=== PATIENT | female | born 1995 | race African-American/Black ===

== ENCOUNTER → 2019-08-02 15:20 | Emergency (ER) | payer MEDICAID ==
[~2019-08-02] VITALS: Ht 165.1 cm; Wt 74.8 kg
[~2019-08-02 15:20] MED LIST: PROMETHAZINE HCL 25 MG/ML 1ML IV PRN; SODIUM CHLORIDE 0.9% 1,000 ML IV ONE; SODIUM CHLORIDE 0.9% 1,000 ML IVB ONE
[2019-08-02 16:17] LABS: Urine Bacteria NONE SEEN /hpf (None Seen); Urine Blood 2+ /uL (Negative); Urine Mucus FEW (None Seen); Urine Specific Gravity 1.032 (1.001-1.035); Urine WBC 4 /hpf (0 - 5)
[2019-08-02 16:18] LABS: Basophils # (auto) 0.1 uL; Eosinophils # (auto) 0 uL; Eosinophils % (auto) 0.5 % (0.0-7.0); Hematocrit 41.4 % (36.0-46.0); Hemoglobin 14.4 g/dL (12.2-16.2); Lymphocytes # (auto) 1.2 uL; Lymphocytes % (auto) 23.9 % (10.0-50.0); Mean Corpuscular Hemoglobin 32.6 pg (28.0-32.0); Mean Corpuscular Hgb Conc. 34.7 g/dL (32.0-36.0); Mean Corpuscular Volume 94.2 fL (80.0-100.0); Monocytes # (auto) 0.5 uL; Monocytes % (auto) 9.6 % (0.0-12.0); Neutrophils # (auto) 3.4 uL; Nucleated Red Blood Cells % 0.1 %; Platelet Count (auto) 250 10^3/uL (140-450); Red Cell Distribution Width 13.4 % (11.8-14.3); White Blood Cell 5.2 10^3/uL (4.4-10.8)
[2019-08-02 16:35] LABS: Albumin 3.9 g/dL (3.4-5.0); BUN/Creatinine Ratio 17.5; Bilirubin, Total 1.5 mg/dL (0.2-1.0); Calcium 9.2 mg/dL (8.5-10.1); Potassium 3.6 mmol/L (3.5-5.1); Total Protein 8.7 g/dL (6.4-8.2)
[2019-08-02 21:20] VITALS: BP 118/80
== END | disposition home or self-care (01) ==
LOC: ER 15:20
DX: O21.8 Other vomiting complicating pregnancy (principal); Z3A.01 Less than 8 weeks gestation of pregnancy
CPT/HCPCS: 36415; 76801; 80053; 81001; 82962; 84702; 85025; 94761; 96360; 99284; J7030

== ENCOUNTER 2020-03-12 03:00 | Observation (INO) | payer MEDICAID ==
[~2020-03-12] VITALS: Ht 165.1 cm; Wt 103.0 kg
== END 2020-03-12 04:10 | disposition home or self-care (01) | DRG 566 ==
LOC: LDRP 03:00
PROVIDERS: ADMIT Obstetrics & Gynecology; ATTEND Obstetrics & Gynecology
DX: O62.9 Abnormality of forces of labor, unspecified (principal); Z3A.39 39 weeks gestation of pregnancy
CPT/HCPCS: 59025; 81002; G0378

== ENCOUNTER 2021-10-10 16:19 | Emergency (ER) | payer MEDICAID ==
[~2021-10-10] VITALS: Ht 165.1 cm; Wt 102.1 kg
[2021-10-10 18:04] LABS: Urine Bacteria NONE SEEN /hpf (None Seen); Urine Blood 1+ /uL (Negative); Urine Mucus FEW (None Seen); Urine Specific Gravity 1.024 (1.001-1.035); Urine WBC 1 /hpf (0 - 5)
[2021-10-10 19:20] LABS: Basophils # (auto) 0 10 ^3/uL (0-0.2); Eosinophils # (auto) 0 10 ^3/uL (0-0.8); Hemoglobin 13.3 g/dL (12.2-16.2); Lymphocytes # (auto) 1.1 10 ^3/uL (0.4-5.4); Neutrophils # (auto) 0.9 10 ^3/uL (1.6-8.6); Nucleated Red Blood Cells % 0.1 %; Red Cell Distribution Width 13.6 % (11.8-14.3); White Blood Cell 2.4 10^3/uL (4.4-10.8)
[2021-10-10 19:23] LABS: Basophils % (auto) 0.7 % (0.0-2.0); Lymphocytes % (auto) 47.2 % (10.0-50.0); Mean Corpuscular Hemoglobin 31.2 pg (28.0-32.0); Mean Corpuscular Hgb Conc. 34.1 g/dL (32.0-36.0); Mean Corpuscular Volume 91.3 fL (80.0-100.0); Monocytes # (auto) 0.3 10 ^3/uL (0-1.3); Monocytes % (auto) 12.8 % (0.0-12.0); Neutrophils % (auto) 38.3 % (37.0-80.0); Red Blood Cells 4.27 10^6/uL (4.0-5.20)
[2021-10-10 19:26] LABS: Albumin 3.7 g/dL (3.4-5.0); Calcium 8.5 mg/dL (8.5-10.1); Potassium 3.6 mmol/L (3.5-5.1)
[2021-10-10 19:41] LABS: BUN/Creatinine Ratio 8.5; Bilirubin, Total 0.4 mg/dL (0.2-1.0); Total Protein 8.1 g/dL (6.4-8.2)
[2021-10-10 23:59] VITALS: BP 148/104
== END 2021-10-11 00:02 | disposition home or self-care (01) ==
LOC: ER 16:19
DX: R07.89 Other chest pain (principal); F12.10 Cannabis abuse, uncomplicated
CPT/HCPCS: 36415; 71045; 80053; 81001; 83735; 84484; 85025; 93005

== ENCOUNTER 2023-08-13 06:50 | Inpatient (IN) | payer MEDICAID ==
[~2023-08-13] VITALS: Ht 160 cm; Wt 101.4 kg
[2023-08-13] MEDS ORDERED: ASPirin 81 mg TAB PO ONE (07:00)
[2023-08-13 07:28] VITALS: PULSE 98; RESP 16; O2SAT 98
[2023-08-13] MEDS: LORazepam 2MG/ML-1ML VIAL IV ONE ×2 (07:33→08:39)
[2023-08-13 07:34] LABS: Basophils # (auto) 0 10 ^3/uL (0-0.2); Basophils % (auto) 0.7 % (0.0-2.0); Eosinophils # (auto) 0 10 ^3/uL (0-0.8); Eosinophils % (auto) 0.5 % (0.0-7.0); Hematocrit 38.3 % (36.0-46.0); Hemoglobin 13.1 g/dL (12.2-16.2); Lymphocytes % (auto) 43.4 % (10.0-50.0); Mean Corpuscular Hemoglobin 31.8 pg (28.0-32.0); Mean Corpuscular Hgb Conc. 34.1 g/dL (32.0-36.0); Mean Corpuscular Volume 93.3 fL (80.0-100.0); Monocytes # (auto) 0.4 10 ^3/uL (0-1.3); Neutrophils # (auto) 2.2 10 ^3/uL (1.6-8.6); Neutrophils % (auto) 47.4 % (37.0-80.0); Nucleated Red Blood Cells % 0.2 %; Red Blood Cells 4.11 10^6/uL (4.0-5.20); Red Cell Distribution Width 14.8 % (11.8-14.3); White Blood Cell 4.7 10^3/uL (4.4-10.8)
[2023-08-13 07:57] LABS: Alanine Aminotransferase 20 U/L (7-40); Albumin 4.2 g/dL (3.2-4.8); Alkaline Phosphatase 59 U/L (46-116); Anion Gap 8 (5-15); Aspartate Aminotransferase 21 U/L (13-40); BUN/Creatinine Ratio 15.4 (10.0-20.0); Bilirubin, Total 0.8 mg/dL (0.2-1.0); Blood Urea Nitrogen 12 mg/dL (9-23); Calcium 8.8 mg/dL (8.5-10.1); Carbon Dioxide 23 mmol/L (20-30); Chloride 110 mmol/L (98-107); Glucose 92 mg/dL (74-106); Potassium 4.3 mmol/L (3.5-5.1); Sodium 141 mmol/L (136-145); Total Protein 6.9 g/dL (5.7-8.2)
[2023-08-13] MEDS ORDERED: ENOXAPARIN SOD 100 MG/1 ML SYRINGE SC ONE (08:45)
[2023-08-13 09:08] LABS: Amphetamine Screen, Urine Neg (NEGATIVE)
[2023-08-13 09:09] LABS: Barbiturate Scree,Urine Neg (NEGATIVE); Benzodiazephine Screen, Urine Neg (NEGATIVE); Cocaine Screen, Urine Neg (NEGATIVE)
[2023-08-13 09:10] LABS: Cannabinoid Screen, Urine Neg (NEGATIVE); Opiate Scree,Urine Neg (NEGATIVE); Phencyclidine Screen, Urine Neg (NEGATIVE); Urine Bacteria NONE SEEN /hpf (None Seen); Urine Blood 2+ /uL (Negative); Urine Clarity HAZY (Clear); Urine Color Colorless (Yellow); Urine Mucus FEW (None Seen); Urine Protein, UAD Negative (Negative); Urine Urobilinogen Normal (Negative); Urine WBC 3 /hpf (0 - 5); Urine pH 6.5 (5.0-8.0)
[2023-08-13] MEDS ORDERED: ACETAMINOPHEN 325 MG TAB PO PRN (09:30)
[2023-08-13] MEDS ORDERED: MORPHINE SULFATE 4 MG/ML SYR/VIAL IV PRN (09:30)
[2023-08-13] MEDS ORDERED: NITROGLYCERIN 0.4 MG SL TAB SL PRN (09:30)
[2023-08-13] MEDS ORDERED: ONDANSETRON HCL 4 MG/2 ML VIAL IV PRN (09:30)
[2023-08-13] MEDS: SODIUM CHLORIDE 0.9% 1,000 ML IV SCH ×2 (09:43→19:30)
[2023-08-13] MEDS: DOCUSATE SOD 100 MG CAP PO SCH (09:51)
[2023-08-13] MEDS ORDERED: LORazepam 2MG/ML-1ML VIAL IV PRN (10:00)
[2023-08-13] MEDS ORDERED: METOPROLOL TARTRATE 25 MG TAB PO SCH (10:00)
[2023-08-13 10:40] LABS: LDL Cholesterol 83 mg/dL (< 100); Triglycerides 112 mg/dL (< 150)
[2023-08-13 10:42] LABS: Cholesterol 175 mg/dL (< 200); HDL Cholesterol 76 mg/dL (40-59)
[2023-08-13 10:57] LABS: Blood Alcohol < 3.0 mg/dL (<10)
[2023-08-13 10:59] LABS: Phosphorus 3.1 mg/dL (2.4-5.1)
[2023-08-13 11:03] LABS: Free T3 3.33 pg/mL (2.3-4.2); Free T4 (Free Thyroxine) 1.09 ng/dL (0.89-1.76)
[2023-08-13 11:36] LABS: Amphetamine Screen, Urine Neg (NEGATIVE)
[2023-08-13 11:37] LABS: Barbiturate Scree,Urine Neg (NEGATIVE); Benzodiazephine Screen, Urine Neg (NEGATIVE); Cannabinoid Screen, Urine Neg (NEGATIVE); Cocaine Screen, Urine Neg (NEGATIVE); Opiate Scree,Urine Neg (NEGATIVE); Phencyclidine Screen, Urine Neg (NEGATIVE)
[2023-08-13] MEDS ORDERED: FOLIC ACID 1 MG, MULTIPLE VITAMIN 10 ML, MAGNESIUM SULF SDV 50% 8 MEQ, THIAMINE INJ 100... INJ SCH ×5 (12:00)
[2023-08-13 23:52] VITALS: PULSE 91; RESP 14; O2SAT 99
[2023-08-14] MEDS: SODIUM CHLORIDE 0.9% 1,000 ML IV SCH ×2 (05:30→15:30)
[2023-08-14 05:59] LABS: Alanine Aminotransferase 19 U/L (7-40); Alkaline Phosphatase 61 U/L (46-116); Anion Gap 8 (5-15); Aspartate Aminotransferase 20 U/L (13-40); BUN/Creatinine Ratio 13.5 (10.0-20.0); Basophils # (auto) 0 10 ^3/uL (0-0.2); Basophils % (auto) 0.4 % (0.0-2.0); Blood Urea Nitrogen 10 mg/dL (9-23); Calcium 8.5 mg/dL (8.7-10.4); Carbon Dioxide 22 mmol/L (20-30); Chloride 105 mmol/L (98-107); Eosinophils # (auto) 0 10 ^3/uL (0-0.8); Eosinophils % (auto) 1.3 % (0.0-7.0); Glucose 85 mg/dL (74-106); Hemoglobin 12.1 g/dL (12.2-16.2); Lymphocytes # (auto) 1.6 10 ^3/uL (0.4-5.4); Lymphocytes % (auto) 42.4 % (10.0-50.0); Mean Corpuscular Hemoglobin 32.3 pg (28.0-32.0); Mean Corpuscular Hgb Conc. 34.6 g/dL (32.0-36.0); Mean Corpuscular Volume 93.5 fL (80.0-100.0); Monocytes # (auto) 0.4 10 ^3/uL (0-1.3); Monocytes % (auto) 10.1 % (0.0-12.0); Neutrophils # (auto) 1.7 10 ^3/uL (1.6-8.6); Neutrophils % (auto) 45.8 % (37.0-80.0); Nucleated Red Blood Cells % 0.2 %; Potassium 3.9 mmol/L (3.5-5.1); Red Blood Cells 3.74 10^6/uL (4.0-5.20); Red Cell Distribution Width 14.6 % (11.8-14.3); Total Protein 6.9 g/dL (5.7-8.2); White Blood Cell 3.8 10^3/uL (4.4-10.8)
[2023-08-14 06:39] LABS: Sodium 135 mmol/L (136-145)
[2023-08-14 08:00] VITALS: PULSE 82; RESP 15; O2SAT 99
[2023-08-14] MEDS: ASPirin 81 mg TAB PO SCH (09:30)
[2023-08-14] MEDS: DOCUSATE SOD 100 MG CAP PO SCH (10:00)
[2023-08-14] MEDS ORDERED: dilTIAZem HCL 180MG ER CAP PO SCH (10:00)
[2023-08-14 13:00] VITALS: BP 116/73; PULSE 81; RESP 18; TEMP 98.2; O2SAT 98
[2023-08-14 15:05] VITALS: RESP 18; O2SAT 95
[2023-08-14 20:00] VITALS: PULSE 85
[2023-08-14 21:11] VITALS: BP 110/77; PULSE 65; RESP 20; TEMP 98.1; O2SAT 100
[2023-08-15] MEDS: SODIUM CHLORIDE 0.9% 1,000 ML IV SCH ×2 (01:30→11:30)
[2023-08-15 05:45] VITALS: BP 119/78; PULSE 72; RESP 18; TEMP 98.5; O2SAT 100
[2023-08-15 07:48] VITALS: RESP 18
[2023-08-15 08:00] VITALS: PULSE 73
[2023-08-15 09:00] VITALS: BP 110/73; PULSE 73; RESP 19; TEMP 98.5; O2SAT 100
[2023-08-15 09:27] LABS: Chloride 106 mmol/L (98-107); Sodium 135 mmol/L (136-145)
[2023-08-15 09:28] LABS: Anion Gap 5 (5-15); Carbon Dioxide 24 mmol/L (20-30)
[2023-08-15 09:29] LABS: Calcium 8.6 mg/dL (8.7-10.4)
[2023-08-15 09:33] LABS: BUN/Creatinine Ratio 11.5 (10.0-20.0); Blood Urea Nitrogen 9 mg/dL (9-23); Glucose 95 mg/dL (74-106)
[2023-08-15 09:34] LABS: Magnesium 1.9 mg/dL (1.6-2.6)
[2023-08-15] MEDS: ASPirin 81 mg TAB PO SCH (09:55)
[2023-08-15] MEDS ORDERED: THIAMINE 100mg/ml INJ (200mg/2ml VIAL) IV SCH (10:00)
[2023-08-15] MEDS ORDERED: dilTIAZem HCL 180MG ER CAP PO SCH (10:00)
[2023-08-15] MEDS: DOCUSATE SOD 100 MG CAP PO SCH (10:00)
[2023-08-15] MEDS ORDERED: FOLIC ACID 1 MG TAB PO SCH (10:00)
[2023-08-15] MEDS ORDERED: DILT-29 PO (10:56)
[2023-08-15 13:00] VITALS: BP 123/82; PULSE 80; RESP 18; TEMP 98; O2SAT 96
[2023-08-15 14:34] VITALS: BP 110/73; PULSE 73; TEMP 36.9
== END 2023-08-15 17:30 | disposition home or self-care (01) | DRG 201 ==
LOC: EDBD 06:50 → ER 06:50 → TELE 09:26 → TELE-WESTW 08-14 12:19
PROVIDERS: ADMIT Nurse Practitioner Family; ATTEND Internal Medicine
DX: I47.10 Supraventricular tachycardia, unspecified (principal); I21.A1 Myocardial infarction type 2; F41.9 Anxiety disorder, unspecified; F10.10 Alcohol abuse, uncomplicated; E66.01 Morbid (severe) obesity due to excess calories; Y90.9 Presence of alcohol in blood, level not specified; F32.A Depression, unspecified; Z82.49 Family history of ischemic heart disease and other diseases of the circulatory system; Z68.39 Body mass index [BMI] 39.0-39.9, adult
CPT/HCPCS: 36415; 71045; 80048; 80053; 80061; 80307; 80320; 81001; 81025; 82607; 83036; 83735; 83880; 84100; 84439; 84443; 84481; 84484; 85025; 85379; 93005; 93306; 96374; 99291; G0378

== ENCOUNTER 2025-08-26 05:51 | Emergency (ER) | payer MEDICAID ==
[~2025-08-26] VITALS: Ht 160 cm; Wt 101.4 kg
[~2025-08-26 05:51] MED LIST changes: +DILT-29 PO; -PROMETHAZINE HCL 25 MG/ML 1ML IV PRN; -SODIUM CHLORIDE 0.9% 1,000 ML IV ONE; -SODIUM CHLORIDE 0.9% 1,000 ML IVB ONE
--- NOTE | 2025-08-26 06:13 | ECG ---
[facility] Test Date: 2025-08-26 Test Time: 06:08:11 Pat Name: RAIMUNDO DOLAN Department: [facility] ED Patient ID: [id number] Room: Gender: F Vitamin Manager: LAURA : 1995 Requested By: REGULO MICHEL Order Number: [id number] Reading MD: Salvatore English Measurements Intervals [place] Rate: 89 P: 88 [place]: 180 QRS: 59 QRSD: 84 T: 21 QT: 355 QTc: 432 Interpretive Statements Sinus rhythm Electronically Signed On 08-31-2025 14:48:07 PST by Salvatore English Please click the below link to view image of tracing.
--- NOTE | 2025-08-26 06:36 | ED.PDOC ---
GI ASSESSMENT HPI Comments 30-year-old female with a medical history of SVT, who presents to the ED for chief complaint of epigastric pain this started at 1:30 a.m. today. Patient reports that pain is constant, nonradiating, in his associated with bloating, nausea, vomiting, and shortness a breath. Patient reports that symptoms worsened when laying flat. She denies any recent stressors at home or at work, fever, chills, diarrhea, recent illness exposure. Chief Complaint: Abdominal Pain Time Seen by MD: 06:16 Primary Care Provider: ANALY Reviewed Notes: Nurses Notes, Medications, Allergies Allergies: Coded Allergies: NO KNOWN ALLERGIES (Unverified , 08/02/19) Home Meds Active Scripts Nitrofurantoin Monohydrate Mac (Macrobid) 100 Mg Cap, 100 MG PO BID for 5 Days, #10 CAP Prov:GARRETT ALANIS MD 08/26/25 Diltiazem Hcl (DILTIAZEM HCL ER) 240 Mg Cap, 240 MG PO DAILY for 30 Days, #30 CAP 3 Refills Prov:GABINO MORRISSEY MD 08/15/23 Information Source: Patient Mode of Arrival: Ambulatory Timing: Hours Duration: Since onset Quality: Sharp Vomitus: Soft Stool: Normal Severity: Moderate Recent: None Recent Hx of: None Pain Location: Epigastric Modifying Factors: Nothing Associated sign and symptoms: Nausea, Vomiting, Abdominal Pain Past Medical History PAST MEDICAL HISTORY: Anemia Surgical History: Denies all surgeries DEPUTY FELONY CLERK History: No Pertinent DEPUTY FELONY CLERK History Family History Family History: Family hx of heart sulema Social History Smoker: Non-Smoker Alcohol: Heavy Drugs: Denies Drug Use Lives In: Home Constitutional: denies: chills, diaphoresis, fatigue, fever, malaise, sweats, weakness, others EENTM: denies: blurred vision, double vision, ear bleeding, ear discharge, ear drainage, ear pain, ear ringing, eye pain, eye redness, hearing loss, mouth pain, mouth swelling, nasal discharge, nose bleeding, nose congestion, nose pain, photophobia, tearing, throat pain, throat swelling, voice changes, others Respiratory: reports: SOB at rest, shortness of breath; denies: cough, hemoptysis, orthopnea, SOB with excertion, stridor, wheezing, others Gastrointestinal: reports: abdominal pain, nausea, vomiting; denies: abdomen distended, blood streaked bowels, constipated, diarrhea, dysphagia, difficulty swallowing, hematemesis, melena, poor appetite, poor fluid intake, rectal bleeding, rectal pain, others Genitourinary: denies: abnormal vagina bleeding, burning, dyspareunia, dysuria, flank pain, frequency, hematuria, incontinence, pain, , vagina discharge, urgency, others Neurological: denies: dizziness, fainting, headache, left sided numbness, left sided weakness, numbness, paresthesia, pre-existing deficit, right sided numbness, right sided weakness, seizure, speech problems, tingling, tremors, weakness, others Musculoskeletal: denies: back pain, gout, joint pain, joint swelling, muscle pain, muscle stiffness, neck pain, others Integumetry: denies: bruises, change in color, change in hair/nails, dryness, laceration, lesions, lumps, rash, wounds, others Allergic/Immunocompromised: denies: Difficulty Healing, Frequent Infections, Hives, Itching, others Hematologic/Lymphatic: denies: anemia, blood clots, easy bleeding, easy bruising, swollen glands, others Endocrine: denies: excessive hunger, excessive sweating, excessive thirst, excessive urination, flushing, intolerance to cold, intolerance to heat, unexplained weight gain, unexplained weight loss, others Psychiatric: reports: anxiety; denies: bipolar disorder, depression, hopeless, panic disorder, schizophrenia, sleepless, suicidal, others All Other Systems: Reviewed and Negative Physical Exam General Appearance: Moderate Distress HEENT: Normal ENT Inspection, Pharynx Normal, TMs Normal Neck: Full Range of Motion, Non-Tender, Normal, Normal Inspection Respiratory: Chest Non-Tender, Lungs Clear, No Accessory Muscle Use, No Respiratory Distress, Normal Breath Sounds Cardiovascular: No Edema, No JVD, No Murmur, No Gallop, Normal Peripheral Pulses, Regular Rate/Rhythm Breast Exam: Deferred Gastrointestinal: No Organomegaly, Non Tender, No Pulsatile Mass, Normal Bowel Sounds, Soft Genitalia: Deferred Pelvic: Deferred Rectal: Deferred Extremities: No calf tenderness, Normal capillary refill, Normal inspection, Normal range of motion, Non-tender, No pedal edema Musculoskeletal : Apperance: Normal Neurologic: Alert, senior quality assurance specialist II-XII nml as Tested, No Motor Deficits, Normal Affect, Normal Mood, No Sensory Deficits Cerebellar Function: Normal Reflexes: Normal Skin: Dry, Normal Color, Warm Peripheral Pulses: 3+ Radial (R), 3+ Radial (L) Lymphatic: No Adenopathy EKG EKG : Pulse Rate (adult): 89 [place]: Normal Cardiac Rhythm: NSR Block: None ST: Normal Was a procedure done? Was a procedure done?: No GI differential Dx Differential Diagnosis: Constipation, Diverticular disease, Esophagitis, Gastritis/PUD, Gastroenteritis, Inflammatory BD, Drug toxicity, Electrolyte Imbalance, Food Poisoning, , Viral X-Ray, Labs, Meds, VS Vital Signs Date Time Temp Pulse Resp B/P (MAP) Pulse Ox O2 Delivery O2 Flow Rate FiO2 08/26/25 07:15 98 Room Air* 0 21 08/26/25 07:15 98.5 87 18 140/100 (113) 98 98.5 08/26/25 06:36 89 08/26/25 06:08 89 08/26/25 06:04 97.9 20 20 143/107 94 97.9 Lab Test 08/26/25 07:00 08/26/25 06:36 Range/Units Urine Color Light-yellow Yellow Urine Clarity Clear Clear Urine pH 6.0 5.0-9.0 Urine Specific [place] 1.005 1.001-1.035 Urine Protein Negative Negative Urine Ketones Negative Negative Urine Blood 1+ H Negative /uL Urine Nitrite Negative Negative Urine Bilirubin Negative Negative Urine Urobilinogen Normal Negative mg/dL Urine Leukocyte Esterase Trace Negative /uL Urine RBC 2 0 - 4 /hpf Urine Microscopic WBC 2 0-5 /HPF Urine Squamous Epithelial Cells Few <5 /hpf Urine Bacteria None seen None Seen /hpf Urine Glucose Normal Normal mg/dL D-Dimer, Quantitative 0.26 0.0-0.49 mg/L FEU Troponin I High Sensitivity < 3 L </=34 ng/L Current Medications Medications (Trade) Dose Ordered Sig/Tami Route Start Time Stop Time Status Last Admin Lorazepam (Ativan Tablet) 2 mg ONCE ONCE PO 08/26/25 06:30 08/26/25 06:31 DC 08/26/25 06:44 Patient alert. Came in because of generalized symptoms. No sign of any distress. Vitals stable. Answering questions. EKG reviewed does not show any acute changes. Stress induced. Was given Ativan. No leg swelling. No shortness a breath. Heart rate within normal limits. Cardiac marker within normal limits. UA shows UTI. Was given prescription of Macrobid antibiotic. Explained to the patient. Was told to follow up with her primary care physician. Was told to come back if there is any problem. Time of 1ST Reevaluation: 06:35 Reevaluation 1ST: Unchanged Patient Education/Counseling: Diagnosis, Treatment, Prognosis Family Education/Counseling: No Family Present SEPSIS Sepsis Screen Date sepsis recognized/suspect: Aug 26, 2025 Time Sepsis recognized/suspect: 616 Recent Procedure: No On Antibiotic Therapy: No Respiratory Rate >20: No Heart Rate >90: No Temp<36 C (96.8 F) or >38.3 C: No SBP <90 or MAP <65 mmHG: No New Acute Mental Status Change: No Is the patient on CPAP, BIPAP,: No Physician Orders Electrocardigram (08/26/25 07:00) Electrocardigram (08/26/25 09:00) Troponin-I Hs (08/26/25 09:00) Troponin-I Hs (08/26/25 12:00) Troponin-I Hs (08/26/25 15:00) Vital Signs Date Time Temp Pulse Resp B/P (MAP) Pulse Ox O2 Delivery O2 Flow Rate FiO2 08/26/25 07:15 98 Room Air* 0 21 08/26/25 07:15 98.5 87 18 140/100 (113) 98 98.5 08/26/25 06:36 89 08/26/25 06:08 89 08/26/25 06:04 97.9 20 20 143/107 94 97.9 Medications Medications Dose Ordered Sig/Tami Route Start Time Stop Time Status Last Admin Dose Admin Lorazepam 2 mg ONCE ONCE PO 08/26/25 06:30 08/26/25 06:31 DC 08/26/25 06:44 Departure 1 Departure Time of Disposition: 06:48 Impression: Primary Impression: Musculoskeletal chest pain Additional Impressions: Anxiety Urinary tract infection Qualified Codes: N30.00 - Acute cystitis without hematuria Disposition: 01 HOME / SELF CARE / HOMELESS Condition: Good e-Prescriptions Nitrofurantoin Monohydrate Mac (Macrobid) 100 Mg Cap 100 MG PO BID for 5 Days, #10 CAP Prov: GARRETT ALANIS MD 08/26/25 Discharged With: Self Critical Care Note Critical Care Time?: No Stability Stability form required: No I personally scribed for GARRETT ALAINS MD ([email or web address]) on 08/26/25 at 06:36. Electronically submitted by Netta Hernandez ([facility]). GARRETT ALANIS MD Aug 26, 2025 06:36
[2025-08-26] MEDS: LORazepam 0.5 MG TAB PO ONE (06:44)
[2025-08-26 07:15] VITALS: O2SAT 98
[2025-08-26 07:44] LABS: Urine Protein, UAD Negative (Negative)
[2025-08-26] MEDS ORDERED: NITR-87 PO (08:40)
[2025-08-26 08:49] VITALS: BP 140/87; PULSE 79; RESP 16; TEMP 97.8; O2SAT 100
== END 2025-08-26 08:53 | disposition home or self-care (01) ==
LOC: ER 05:51
DX: R07.89 Other chest pain (principal); F41.9 Anxiety disorder, unspecified; N39.0 Urinary tract infection, site not specified; Z79.899 Other long term (current) drug therapy
CPT/HCPCS: 36415; 81001; 84484; 85379; 93005

== ENCOUNTER 2025-08-30 21:00 | Emergency (ER) | payer MEDICAID ==
[~2025-08-30] VITALS: Ht 165.1 cm; Wt 117.5 kg
[~2025-08-30 21:00] MED LIST changes: +NITR-87 PO
[2025-08-30 21:05] VITALS: BP 140/107; RESP 20; TEMP 98.2; O2SAT 100
[2025-08-30 21:17] VITALS: PULSE 78
--- NOTE | 2025-08-30 21:18 | ED.PDOC ---
History of Present Illness HPI Comments 30-year-old female who comes in with chief complaint of chest pain. The patient states that she was here on morning with similar chest pain. She states that the pain was substernal in nature. At that time she stated that she was also having a headache and felt very tired. Today, the patient's feels somewhat anxious and says that the chest pain once again was substernal so came to the emergency department's for evaluation. She is having some mild shortness for breath as well as nausea. The patient was diagnosed with anxiety and states that she is somewhat anxious about or symptoms. The patient was able to ambulate into the emergency department's without any difficulty. Chief Complaint: Chest Pain Time Seen by MD: 21:09 Primary Care Provider: ANALY Reviewed Notes: Nurses Notes, Medications, Allergies (No allergies to medications) Allergies: Coded Allergies: NO KNOWN ALLERGIES (Unverified , 08/02/19) Home Meds Active Scripts Nitrofurantoin Monohydrate Mac (Macrobid) 100 Mg Cap, 100 MG PO BID for 5 Days, #10 CAP Prov:GARRETT ALANIS MD 08/26/25 Diltiazem Hcl (DILTIAZEM HCL ER) 240 Mg Cap, 240 MG PO DAILY for 30 Days, #30 CAP 3 Refills Prov:GABINO MORRISSEY MD 08/15/23 Information Source: Patient Mode of Arrival: Ambulatory Severity: Mild Timing: Days Duration: Intermittent Prehospital treatment: None Associated signs and symptoms Shortness of breath with the nausea Past Medical History PAST MEDICAL HISTORY: Anemia Past Medical History (Other): Previous history of SVT Surgical History: Denies all surgeries OXYGEN EQUIPMENT TECHNICIAN History: No Pertinent OXYGEN EQUIPMENT TECHNICIAN History Family History Family History: Family hx of heart sulema Social History Smoker: Non-Smoker Alcohol: Heavy Drugs: Denies Drug Use Lives In: Home Constitutional: denies: chills, diaphoresis, fatigue, fever, malaise, sweats, weakness, others EENTM: denies: blurred vision, double vision, ear bleeding, ear discharge, ear drainage, ear pain, ear ringing, eye pain, eye redness, hearing loss, mouth pain, mouth swelling, nasal discharge, nose bleeding, nose congestion, nose pain, photophobia, tearing, throat pain, throat swelling, voice changes, others Respiratory: reports: shortness of breath; denies: cough, hemoptysis, orthopnea, SOB at rest, SOB with excertion, stridor, wheezing, others Cardiovascular: reports: chest pain; denies: dizzy spells, diaphoresis, Dyspnea on exertion, edema, irregular heart beat, left arm pain, lightheadedness, palpitations, PND, syncope, others Gastrointestinal: reports: nausea; denies: abdomen distended, abdominal pain, blood streaked bowels, constipated, diarrhea, dysphagia, difficulty swallowing, hematemesis, melena, poor appetite, poor fluid intake, rectal bleeding, rectal pain, vomiting, others Genitourinary: denies: abnormal vagina bleeding, burning, dyspareunia, dysuria, flank pain, frequency, hematuria, incontinence, pain, , vagina discharge, urgency, others Neurological: denies: dizziness, fainting, headache, left sided numbness, left sided weakness, numbness, paresthesia, pre-existing deficit, right sided numbness, right sided weakness, seizure, speech problems, tingling, tremors, weakness, others Musculoskeletal: denies: back pain, gout, joint pain, joint swelling, muscle pain, muscle stiffness, neck pain, others Integumetry: denies: bruises, change in color, change in hair/nails, dryness, laceration, lesions, lumps, rash, wounds, others Allergic/Immunocompromised: denies: Difficulty Healing, Frequent Infections, Hives, Itching, others Hematologic/Lymphatic: denies: anemia, blood clots, easy bleeding, easy bruising, swollen glands, others Endocrine: denies: excessive hunger, excessive sweating, excessive thirst, excessive urination, flushing, intolerance to cold, intolerance to heat, unexplained weight gain, unexplained weight loss, others Psychiatric: denies: anxiety, bipolar disorder, depression, hopeless, panic disorder, schizophrenia, sleepless, suicidal, others Physical Exam General Appearance: No Apparent Distress HEENT: Normal ENT Inspection, Pharynx Normal, TMs Normal Neck: Full Range of Motion, Non-Tender, Normal, Normal Inspection Respiratory: Chest Non-Tender, Lungs Clear, No Accessory Muscle Use, No Respiratory Distress, Normal Breath Sounds Cardiovascular: No Edema, No JVD, No Murmur, No Gallop, Normal Peripheral Pulses, Regular Rate/Rhythm Breast Exam: Deferred Gastrointestinal: No Organomegaly, Non Tender, No Pulsatile Mass, Normal Bowel Sounds, Soft Genitalia: Deferred Pelvic: Deferred Rectal: Deferred Extremities: No calf tenderness, Normal capillary refill, Normal inspection, Normal range of motion, Non-tender, No pedal edema Musculoskeletal : Apperance: Normal Neurologic: Alert, communications department head II-XII nml as Tested, No Motor Deficits, Normal Affect, Normal Mood, No Sensory Deficits Cerebellar Function: Normal Reflexes: Normal Skin: Dry, Normal Color, Warm Lymphatic: No Adenopathy Was a procedure done? Was a procedure done?: No EKG EKG : Pulse Rate (adult): 78 [place]: Normal Cardiac Rhythm: NSR Block: None ST: Nonsp Differential Dx Considerations may include: SVT, ACS, VA, myocardial ischemia X-Ray, Labs, Meds, VS Vital Signs Date Time Temp Pulse Resp B/P (MAP) Pulse Ox O2 Delivery O2 Flow Rate FiO2 08/30/25 21:05 98.2 86 20 140/107 100 98.2 The patient will be discharged at this time. The patient will follow up with the primary care doctor We do not feel that this patient's chest pain is cardiac in nature Images Reviewed?: Images reviewed and evaluated by me Time of 1ST Reevaluation: 21:16 Reevaluation 1ST: Improved Patient Education/Counseling: Diagnosis, Treatment, Prognosis, Need For Follow Up Family Education/Counseling: No Family Present SEPSIS Sepsis Screen Date sepsis recognized/suspect: Aug 30, 2025 Time Sepsis recognized/suspect: 2102 Recent Procedure: No On Antibiotic Therapy: No Respiratory Rate >20: No Heart Rate >90: No Temp<36 C (96.8 F) or >38.3 C: No SBP <90 or MAP <65 mmHG: No New Acute Mental Status Change: No Is the patient on CPAP, BIPAP,: No Vital Signs Date Time Temp Pulse Resp B/P (MAP) Pulse Ox O2 Delivery O2 Flow Rate FiO2 08/30/25 21:05 98.2 86 20 140/107 100 98.2 Departure 1 Departure Time of Disposition: 21:17 Impression: Primary Impression: Acute anxiety Additional Impression: Nonspecific chest pain Disposition: HOME / SELF CARE / HOMELESS Condition: Fair Discharged With: Self Critical Care Note Critical Care Time?: No Stability Stability form required: No Heart Score Heart Score: Heart Score Response (Comments) Value History N/A 0 EKG N/A 0 Age N/A 0 Risk Factors N/A 0 Troponin N/A 0 Total 0 LISA VIRK MD Aug 30, 2025 21:17
--- NOTE | 2025-08-31 09:32 | ECG ---
[facility] Test Date: 2025-08-30 Test Time: 21:11:04 Pat Name: RAIMUNDO DOLAN Department: Room: Gender: F Meterman: PIETER : 1995 Requested By: LISA VIRK Order Number: [id number] Reading MD: Salvatore English Measurements Intervals [place] Rate: 78 P: 108 [place]: 199 QRS: 57 QRSD: 82 T: 44 QT: 369 QTc: 421 Interpretive Statements Sinus rhythm Electronically Signed On 08-31-2025 15:08:03 PST by Salvatore English Please click the below link to view image of tracing.
== END 2025-08-30 23:00 | disposition home or self-care (01) ==
LOC: ER 21:00
DX: F41.9 Anxiety disorder, unspecified (principal); R07.9 Chest pain, unspecified
CPT/HCPCS: 93005